=== PATIENT | male | born 1965 | race African-American/Black ===

== ENCOUNTER 2018-12-15 19:11 | Emergency (ER) | payer BC ==
[~2018-12-15] VITALS: Ht 185.4 cm; Wt 98.0 kg
[2018-12-15] MEDS ORDERED: CYCLOBENZAPRINE 10MG TABLET PO ONE (20:15)
[2018-12-15] MEDS ORDERED: IBUPROFEN 600MG TABLET PO ONE (20:15)
[2018-12-15 20:52] VITALS: BP 140/78
== END 2018-12-16 05:23 | disposition home or self-care (01) ==
LOC: ER 19:11
DX: M54.5 Low back pain (principal); M54.2 Cervicalgia; F12.10 Cannabis abuse, uncomplicated; V49.9XXA Car occupant (driver) (passenger) injured in unspecified traffic accident, initial encounter; Y93.89 Activity, other specified; Y92.89 Other specified places as the place of occurrence of the external cause; Y99.8 Other external cause status
CPT/HCPCS: 99283